=== PATIENT | male | born 1980 | race Hispanic/Latino ===

== ENCOUNTER 2021-11-18 15:07 | Emergency (ER) | payer SELFPAY ==
[~2021-11-18] VITALS: Ht 182.9 cm; Wt 114.9 kg
[2021-11-18] MEDS ORDERED: LIDOCAINE HCL 1% LOCAL INJ 20 ML VIAL INJ STA (16:28)
[2021-11-18] MEDS ORDERED: TETANUS/DIPHTHERIA TOX ADULT 0.5 ML SYR IM ONE (16:30)
[2021-11-18] MEDS ORDERED: BACITRACIN ZINC 0.9GM TP ONE (16:40)
[2021-11-18] MEDS ORDERED: TETANUS/DIPHTHERIA TOX ADULT 0.5 ML SYR ONE (16:41)
[2021-11-18] MEDS ORDERED: CEPHALEXIN500 MG PO (16:42)
== END 2021-11-18 17:02 | disposition home or self-care (01) ==
LOC: FSED 16:27
DX: S61.210A Laceration without foreign body of right index finger without damage to nail, initial encounter (principal); Z23 Encounter for immunization
CPT/HCPCS: 12001; 90471; 90714; 96372; 99283; J2001